=== PATIENT | male | born 1965 | race African-American/Black ===

== ENCOUNTER 2021-09-14 06:02 | Inpatient (IN) ==
[2021-09-13 11:19] LABS: Basophils # 0.1 10*3/uL (0.0-0.2); Basophils % 0.7 % (0.0-0.8); Eosinophils # 0.2 10*3/uL (0.0-0.87); Eosinophils % 2.3 % (0.00-10.9); Hematocrit 48.1 VOL% (42.0-52.0); Hemoglobin 15.8 GM/DL (14.0-18.0); Immature Granulocytes % 0.6 %; Immature Granulocytes Absolute 0.05 #; Lymphocytes % 22.4 % (21.2-54.2); Mean Corpuscular HGB Conc 32.8 GM/DL (32-36); Mean Corpuscular Volume 79.8 FL (87-102); Mean Platelet Volume 12.2 FL (9.6-12.0); Monocytes % 12.6 % (1.7-12.7); Neutrophils % 61.4 % (38.7-73.9); Platelet Count 233 T/CUMM (130-400); Red Blood Count 6.03 MC/CUMM (3.8-5.5); Red Cell Distribution Width 16.6 % (9.3-17.3); White Blood Count 8.9 T/CUMM (4-12)
[2021-09-13 11:38] LABS: Alanine Aminotransferase 127 U/L (16-61); Albumin 4.2 G/DL (3.4-5.0); Alkaline Phosphatase 104 U/L (45-117); Aspartate Amino Transferase 77 U/L (0-37); Bilirubin,Total < 0.39 MG/DL (0.20-1.00); Blood Urea Nitrogen 14 MG/DL (7-18); Calcium 10.3 MG/DL (8.5-10.1); Carbon Dioxide 29 MMOL/L (21-32); Estimated Glom Filtration Rate 147 ML/MIN; Glucose 99 MG/DL (74-106); Osmolality,Calculated 270.1 MOS/KG (273-304); Potassium 4.3 MMOL/L (3.5-5.1); Sodium 135 MMOL/L (136-145); Total Protein 8.3 G/DL (6.4-8.2)
[~2021-09-14 06:02] MED LIST: ALVIMOPAN 12 MG CAPSULE PO ONE; cefTRIAXone 1,000 MG in SODIUM CHLORIDE 0.9% 100 ML IV ONE
[2021-09-14] MEDS ORDERED: LACTATED RINGERS 1,000 ML IV SCH (06:30)
[2021-09-14] MEDS ORDERED: ROPIVACAINE 0.5% 30 ML VIAL ONE ×2 (06:33→06:40)
[2021-09-14] MEDS ORDERED: fentaNYL 100 MCG/2 ML VIAL ONE ×3 (06:34→09:48)
[2021-09-14] MEDS ORDERED: MIDAZOLAM 2 MG/2 ML VIAL ONE (06:34)
[2021-09-14] MEDS ORDERED: LIDOCAINE 1% 5 ML VIAL ONE (06:46)
[2021-09-14] MEDS ORDERED: LIDOCAINE 2% 5 ML VIAL ONE ×2 (07:35→08:28)
[2021-09-14] MEDS ORDERED: propofoL 200 MG/20 ML VIAL IV ONE (07:35)
[2021-09-14] MEDS ORDERED: DEXAMETHASONE 4 MG/1 ML VIAL ONE (07:35)
[2021-09-14] MEDS ORDERED: ONDANSETRON 4 MG/2 ML VIAL ONE (07:35)
[2021-09-14 08:12] LABS: Bilirubin,Urine Negative (Negative); Blood, Urine Small mg/dL (Negative); Glucose,Urine (UA) Negative (Negative); Ketones,Urine Negative (Negative); Mucus,Urine Occasional /LPF (Occasional); Nitrite,Urine Negative (Negative); Protein,Urine Negative; RBC,Urine 3 /HPF (0-4); Squamous Epithelial Cell,Urine Occasional /HPF (0-10); Urine Appearance CLEAR (Clear); Urine Color Yellow (Yellow); Urine Urobilinogen < 2.0 EU/DL (<2.0)
[2021-09-14] MEDS ORDERED: SEVOFLURANE 1 UNIT/15 MINUTE INH ONE ×7 (08:28→11:40)
[2021-09-14] MEDS ORDERED: ROCURONIUM 50 MG/5 ML VIAL IV ONE (08:28)
[2021-09-14] MEDS ORDERED: LACTATED RINGERS 0 ML IV ONE (08:28)
[2021-09-14] MEDS ORDERED: ACETAMINOPHEN INJ 1,000 MG/100 ML VIAL IV ONE (08:29)
[2021-09-14] MEDS ORDERED: NEOSTIGMINE 10 MG/10 ML VIAL ONE (11:14)
[2021-09-14] MEDS ORDERED: GLYCOPYRROLATE 0.4 MG/2 ML VIAL ONE (11:17)
[2021-09-14] MEDS ORDERED: MAGNESIUM HYDROXIDE SUSP 30 ML UDCUP PO PRN (11:32)
[2021-09-14] MEDS ORDERED: HYDROmorphone 2 MG/1 ML VIAL IV PRN (11:32)
[2021-09-14] MEDS ORDERED: ONDANSETRON 4 MG/2 ML VIAL IV PRN ×2 (11:32→12:05)
[2021-09-14] MEDS ORDERED: SIMETHICONE CHEW 125 MG TABLET PO PRN (11:32)
[2021-09-14] MEDS ORDERED: PROMETHAZINE 25 MG/1 ML VIAL IM PRN (11:32)
[2021-09-14] MEDS ORDERED: hydrALAZINE 25 MG TABLET PO PRN (11:35)
[2021-09-14] MEDS ORDERED: LACTATED RINGERS 1,000 ML IV ONE (11:40)
[2021-09-14] MEDS ORDERED: MEPERIDINE 25 MG/1 ML VIAL IV PRN (12:05)
[2021-09-14 12:41] LABS: Basophils % 0.2 % (0.0-0.8); Eosinophils % 0.2 % (0.00-10.9); Hematocrit 42.5 VOL% (42.0-52.0); Hemoglobin 13.4 GM/DL (14.0-18.0); Immature Granulocytes % 0.6 %; Lymphocytes # 1.9 10*3/uL (1.4-4.0); Lymphocytes % 11.3 % (21.2-54.2); Mean Corpuscular HGB Conc 31.5 GM/DL (32-36); Mean Corpuscular Volume 81.6 FL (87-102); Mean Platelet Volume 11.5 FL (9.6-12.0); Monocytes % 5.9 % (1.7-12.7); Neutrophils % 81.8 % (38.7-73.9); Platelet Count 202 T/CUMM (130-400); Red Blood Count 5.21 MC/CUMM (3.8-5.5); White Blood Count 16.8 T/CUMM (4-12)
[2021-09-14 12:54] LABS: Calcium 8.5 MG/DL (8.5-10.1); Potassium 5.4 MMOL/L (3.5-5.1)
[2021-09-14] MEDS ORDERED: PHENOL 1.4% THROAT SPRAY 177 ML BOTTLE PO PRN (13:24)
[2021-09-14] MEDS: ACETAMINOPHEN 325 MG TABLET PO SCH ×2 (14:22→17:58)
[2021-09-14] MEDS: cefTRIAXone 1,000 MG in SODIUM CHLORIDE 0.9% 100 ML IV SCH (15:47)
[2021-09-14] MEDS: OXYBUTYNIN 5 MG TABLET PO SCH ×2 (15:48→22:07)
[2021-09-14] MEDS: SODIUM CHLORIDE 0.9% 1,000 ML IV SCH (15:50)
[2021-09-14] MEDS: ALVIMOPAN 12 MG CAPSULE PO SCH (22:07)
[2021-09-14] MEDS: DOCUSATE SODIUM 100 MG CAPSULE PO SCH (22:07)
[2021-09-14] MEDS: oxyCODONE/ACETAMINOPHEN 5-325 MG TABLET PO PRN (22:08)
[2021-09-15] MEDS: SODIUM CHLORIDE 0.9% 1,000 ML IV SCH (00:20)
[2021-09-15] MEDS: ACETAMINOPHEN 325 MG TABLET PO SCH ×4 (00:20→17:50)
[2021-09-15 05:45] LABS: Basophils % 0.1 % (0.0-0.8); Hematocrit 40.1 VOL% (42.0-52.0); Hemoglobin 12.9 GM/DL (14.0-18.0); Immature Granulocytes % 0.6 %; Immature Granulocytes Absolute 0.08 #; Lymphocytes # 1.6 10*3/uL (1.4-4.0); Lymphocytes % 11.4 % (21.2-54.2); Mean Corpuscular HGB Conc 32.2 GM/DL (32-36); Mean Platelet Volume 11.5 FL (9.6-12.0); Monocytes % 12.9 % (1.7-12.7); Platelet Count 180 T/CUMM (130-400); Red Blood Count 5.01 MC/CUMM (3.8-5.5); Red Cell Distribution Width 16.1 % (9.3-17.3); White Blood Count 14.2 T/CUMM (4-12)
[2021-09-15 06:20] LABS: Calcium 8.3 MG/DL (8.5-10.1); Osmolality,Calculated 276.7 MOS/KG (273-304); Potassium 4.4 MMOL/L (3.5-5.1)
[2021-09-15] MEDS: DOCUSATE SODIUM 100 MG CAPSULE PO SCH ×2 (08:55→20:38)
[2021-09-15] MEDS: hydroCHLOROthiazide 12.5 MG CAPSULE PO SCH (08:55)
[2021-09-15] MEDS: OXYBUTYNIN 5 MG TABLET PO SCH ×3 (08:56→20:38)
[2021-09-15] MEDS: ALVIMOPAN 12 MG CAPSULE PO SCH ×2 (08:56→20:38)
[2021-09-15] MEDS: cefTRIAXone 1,000 MG in SODIUM CHLORIDE 0.9% 100 ML IV SCH (15:54)
[2021-09-15] MEDS: oxyCODONE/ACETAMINOPHEN 5-325 MG TABLET PO PRN (20:39)
[2021-09-16] MEDS: ACETAMINOPHEN 325 MG TABLET PO SCH ×2 (01:20→05:59)
[2021-09-16 05:18] LABS: Basophils # 0.1 10*3/uL (0.0-0.2); Basophils % 0.6 % (0.0-0.8); Eosinophils # 0.1 10*3/uL (0.0-0.87); Eosinophils % 0.5 % (0.00-10.9); Hematocrit 40.7 VOL% (42.0-52.0); Hemoglobin 13.3 GM/DL (14.0-18.0); Immature Granulocytes % 0.6 %; Immature Granulocytes Absolute 0.07 #; Lymphocytes % 17.1 % (21.2-54.2); Mean Corpuscular HGB Conc 32.7 GM/DL (32-36); Mean Corpuscular Volume 78.9 FL (87-102); Mean Platelet Volume 11.1 FL (9.6-12.0); Monocytes % 12.4 % (1.7-12.7); Neutrophils % 68.8 % (38.7-73.9); Platelet Count 173 T/CUMM (130-400); Red Blood Count 5.16 MC/CUMM (3.8-5.5); Red Cell Distribution Width 16.1 % (9.3-17.3); White Blood Count 11.7 T/CUMM (4-12)
[2021-09-16 07:57] VITALS: BP 122/73
[2021-09-16] MEDS: DOCUSATE SODIUM 100 MG CAPSULE PO SCH (08:26)
[2021-09-16] MEDS: OXYBUTYNIN 5 MG TABLET PO SCH (08:26)
[2021-09-16] MEDS: hydroCHLOROthiazide 12.5 MG CAPSULE PO SCH (08:26)
[2021-09-16] MEDS: ALVIMOPAN 12 MG CAPSULE PO SCH (08:26)
== END 2021-09-16 09:44 | disposition home or self-care (01) | DRG 707 ==
LOC: N.OR 06:02 → N.SDSINP 06:05 → N.3E 09:56
PROVIDERS: ADMIT Surgery; ATTEND Surgery